=== PATIENT | female | born 1970 | race Caucasian/White ===

== ENCOUNTER 2020-08-28 00:51 | Inpatient (IN) | payer OTHER ==
[2020-08-28] MEDS ORDERED: CALCIUM CHLORIDE 1 GM in SODIUM CHLORIDE 0.9% 50 ML IVPB STA (01:18)
[2020-08-28] MEDS ORDERED: SODIUM CHLORIDE 0.9% 2,000 ML IV STA (01:18)
[2020-08-28] MEDS ORDERED: CALCIUM GLUCONATE 2 GM in SODIUM CHLORIDE 0.9% 100 ML IVPB ONE (01:19)
[2020-08-28] MEDS ORDERED: GLUCAGON 1 MG/ML VIAL IVP STA (01:19)
--- NOTE | 2020-08-28 01:20 | ED ---
Overdose HPI - General Chief Complaint: Overdose Stated Complaint: Mental Health Time Seen by Provider: 08/28/20 01:09 Source: patient, EMS Mode of arrival: EMS Limitations: no limitations - Related Data Allergies Allergy/AdvReac Type Severity Reaction Status Date / Time Penicillins Allergy Anaphylaxis Verified 08/28/20 01:12 Review of Systems ROS Statement: Those systems with pertinent positive or pertinent negative responses have been documented in the HPI. ROS Other: All systems not noted in ROS Statement are negative. Past Medical History Past Medical History: Hypertension Additional Past Medical History / Comment(s): Hepatitis C History of Any Multi-Drug Resistant Organisms: None Reported Past Surgical History: No Surgical Hx Reported Past Psychological History: Anxiety, Bipolar, Depression Smoking Status: Former smoker General Exam Limitations: no limitations Course Vital Signs 08/28/20 08/28/20 08/28/20 01:08 01:20 01:40 Temperature 98.0 F Pulse Rate 72 82 66 Respiratory 18 18 18 Rate Blood Pressure 141/96 97/62 105/65 O2 Sat by Pulse 97 98 97 Oximetry 08/28/20 08/28/20 08/28/20 02:00 02:14 02:28 Temperature Pulse Rate 62 63 Respiratory 18 15 14 Rate Blood Pressure 115/66 107/61 O2 Sat by Pulse 97 Oximetry Medical Decision Making - Lab Data Result diagrams: 08/28/20 01:26 08/28/20 01:26 Lab Results 08/28/20 08/28/20 08/28/20 Range/Units 01:26 01:26 01:26 WBC 6.0 (3.8-10.6) k/uL RBC 4.21 (3.80-5.40) m/uL Hgb 12.9 (11.4-16.0) gm/dL Hct 38.0 (34.0-46.0) % MCV 90.3 (80.0-100.0) fL MCH 30.6 (25.0-35.0) pg MCHC 33.9 (31.0-37.0) g/dL RDW 14.2 (11.5-15.5) % Plt Count 195 (150-450) k/uL MPV 7.7 Neutrophils % 65 % Lymphocytes % 22 % Monocytes % 7 % Eosinophils % 3 % Basophils % 0 % Neutrophils # 3.9 (1.3-7.7) k/uL Lymphocytes # 1.4 (1.0-4.8) k/uL Monocytes # 0.4 (0-1.0) k/uL Eosinophils # 0.2 (0-0.7) k/uL Basophils # 0.0 (0-0.2) k/uL Sodium 140 (137-145) mmol/L Potassium 3.5 (3.5-5.1) mmol/L Chloride 107 (98-107) mmol/L Carbon Dioxide 25 (22-30) mmol/L Anion Gap 8 mmol/L BUN 19 H (7-17) mg/dL Creatinine 0.55 (0.52-1.04) mg/dL Est GFR (CKD-EPI)AfAm >90 (>60 ml/min/1.73 sqM) Est GFR (CKD-EPI)NonAf >90 (>60 ml/min/1.73 sqM) Glucose 114 H (74-99) mg/dL POC Glucose (mg/dL) (75-99) mg/dL POC Glu Police [employer]et ID Calcium 9.0 (8.4-10.2) mg/dL Total Bilirubin 0.2 (0.2-1.3) mg/dL AST 48 H (14-36) U/L ALT 55 H (4-34) U/L Alkaline Phosphatase 62 (38-126) U/L Creatine Kinase 177 H (30-135) U/L CK-MB (CK-2) 1.3 (0.0-2.4) ng/mL Troponin I <0.012 (0.000-0.034) ng/mL Total Protein 6.5 (6.3-8.2) g/dL Albumin 3.7 (3.5-5.0) g/dL Lipase 205 (23-300) U/L Urine HCG, Qual (Not Detectd) Salicylates <1.0 mg/dL Urine Opiates Screen (NotDetected) Ur Oxycodone Screen (NotDetected) Urine Methadone Screen (NotDetected) Ur Propoxyphene Screen (NotDetected) Acetaminophen <10.0 ug/mL Ur Barbiturates Screen (NotDetected) U Tricyclic Antidepress (NotDetected) Ur Phencyclidine Scrn (NotDetected) Ur Amphetamines Screen (NotDetected) U Methamphetamines Scrn (NotDetected) U Benzodiazepines Scrn (NotDetected) Urine Cocaine Screen (NotDetected) U Marijuana (THC) Screen (NotDetected) Serum Alcohol <10 mg/dL 08/28/20 08/28/20 08/28/20 Range/Units 02:01 02:01 04:03 WBC (3.8-10.6) k/uL RBC (3.80-5.40) m/uL Hgb (11.4-16.0) gm/dL Hct (34.0-46.0) % MCV (80.0-100.0) fL MCH (25.0-35.0) pg MCHC (31.0-37.0) g/dL RDW (11.5-15.5) % Plt Count (150-450) k/uL MPV Neutrophils % % Lymphocytes % % Monocytes % % Eosinophils % % Basophils % % Neutrophils # (1.3-7.7) k/uL Lymphocytes # (1.0-4.8) k/uL Monocytes # (0-1.0) k/uL Eosinophils # (0-0.7) k/uL Basophils # (0-0.2) k/uL Sodium (137-145) mmol/L Potassium (3.5-5.1) mmol/L Chloride (98-107) mmol/L Carbon Dioxide (22-30) mmol/L Anion Gap mmol/L BUN (7-17) mg/dL Creatinine (0.52-1.04) mg/dL Est GFR (CKD-EPI)AfAm (>60 ml/min/1.73 sqM) Est GFR (CKD-EPI)NonAf (>60 ml/min/1.73 sqM) Glucose (74-99) mg/dL POC Glucose (mg/dL) 175 H (75-99) mg/dL POC Glu Police Cadet ID Karrie Tina Calcium (8.4-10.2) mg/dL Total Bilirubin (0.2-1.3) mg/dL AST (14-36) U/L ALT (4-34) U/L Alkaline Phosphatase (38-126) U/L Creatine Kinase (30-135) U/L CK-MB (CK-2) (0.0-2.4) ng/mL Troponin I (0.000-0.034) ng/mL Total Protein (6.3-8.2) g/dL Albumin (3.5-5.0) g/dL Lipase (23-300) U/L Urine HCG, Qual Not Detected (Not Detectd) Salicylates mg/dL Urine Opiates Screen Not Detected (NotDetected) Ur Oxycodone Screen Not Detected (NotDetected) Urine Methadone Screen Not Detected (NotDetected) Ur Propoxyphene Screen Not Detected (NotDetected) Acetaminophen ug/mL Ur Barbiturates Screen Not Detected (NotDetected) U Tricyclic Antidepress Not Detected (NotDetected) Ur Phencyclidine Scrn Not Detected (NotDetected) Ur Amphetamines Screen Not Detected (NotDetected) U Methamphetamines Scrn Not Detected (NotDetected) U Benzodiazepines Scrn Not Detected (NotDetected) Urine Cocaine Screen Not Detected (NotDetected) U Marijuana (THC) Screen Not Detected (NotDetected) Serum Alcohol mg/dL - EKG Data -: EKG Interpreted by Me (EKG shows sinus rhythm 77. 154 QRS 92 QTC 42) Disposition Clinical Impression: Drug overdose, Suicide attempt by multiple drug overdose, Overdose of calcium- channel sigrid Disposition: ADMITTED IP TO THIS HOSP Condition: Critical Is patient prescribed a controlled substance at d/c from ED?: No Referrals: None,Stated [Primary Care Provider] - 1-2 days
[2020-08-28 01:39] LABS: Basophils % (A) 0 %; Eosinophils # (A) 0.2 k/uL (0-0.7); Eosinophils % (A) 3 %; HGB 12.9 gm/dL (11.4-16.0); Lymphocytes # (A) 1.4 k/uL (1.0-4.8); Lymphocytes % (A) 22 %; MCH 30.6 pg (25.0-35.0); MCHC 33.9 g/dL (31.0-37.0); MCV 90.3 fL (80.0-100.0); Mean Platelet Volume 7.7; Monocytes # (A) 0.4 k/uL (0-1.0); Monocytes % (A) 7 %; Neutrophils # (A) 3.9 k/uL (1.3-7.7); Neutrophils % (A) 65 %; Platelet Count 195 k/uL (150-450); RBC 4.21 m/uL (3.80-5.40); RDW 14.2 % (11.5-15.5)
[2020-08-28] MEDS ORDERED: CALCIUM CHLORIDE 100 MG/ML 10 ML SYRINGE IVP STA (01:41)
[2020-08-28] MEDS: GLUCAGON IV SCH ×11 (01:48→23:37)
[2020-08-28] MEDS: WATER IV SCH ×11 (01:48→23:37)
[2020-08-28] MEDS: DEXTROSE 5% IV SCH ×11 (01:48→23:37)
[2020-08-28 01:52] LABS: ALT 55 U/L (4-34); AST 48 U/L (14-36); Acetaminophen <10.0 ug/mL; African American GFR (CKD) >90 (>60 ml/min/1.73 sqM); Albumin 3.7 g/dL (3.5-5.0); Alcohol <10 mg/dL; Alkaline Phosphatase 62 U/L (38-126); Anion Gap 8 mmol/L; Blood Urea Nitrogen 19 mg/dL (7-17); Carbon Dioxide 25 mmol/L (22-30); Chloride 107 mmol/L (98-107); Creatine Kinase 177 U/L (30-135); Glucose 114 mg/dL (74-99); Lipase 205 U/L (23-300); Non-African American GFR(CKD) >90 (>60 ml/min/1.73 sqM); Potassium 3.5 mmol/L (3.5-5.1); Salicylate <1.0 mg/dL; Sodium 140 mmol/L (137-145); Total Bilirubin 0.2 mg/dL (0.2-1.3); Total Protein 6.5 g/dL (6.3-8.2)
[2020-08-28 02:03] LABS: Creatine Kinase MB 1.3 ng/mL (0.0-2.4); Troponin I <0.012 ng/mL (0.000-0.034)
[2020-08-28] MEDS ORDERED: NALOXONE 0.4 MG/ML 1 ML VIAL IVP STA (02:09)
[2020-08-28 02:24] LABS: Amphetamine Screen,Urine Not Detected (NotDetected); Barbiturate Screen,Urine Not Detected (NotDetected); Benzodiazepines Screen,Urine Not Detected (NotDetected); Cocaine Screen,Urine Not Detected (NotDetected); Methadone Screen, Urine Not Detected (NotDetected); Opiate Screen,Urine Not Detected (NotDetected); Oxycodone Screen, Urine Not Detected (NotDetected); Phencyclidine Screen,Urine Not Detected (NotDetected); Tricyclic Antidepressant,Urine Not Detected (NotDetected); Urn Cannabinoid Scrn Not Detected (NotDetected)
[2020-08-28] MEDS: NOREPINEPHRINE 4 MG in SODIUM CHLORIDE 0.9% 250 ML IV SCH ×2 (02:27→21:28)
[2020-08-28] MEDS ORDERED: INSULIN REGULAR BOLUS (FROM DRIP BAG) IV ONE (04:02)
[2020-08-28] MEDS ORDERED: INSULIN REGULAR 100 UNIT/ML VIAL IV ONE (04:04)
[2020-08-28 04:06] LABS: Glucose,Whole Blood 175 mg/dL (75-99)
[2020-08-28] MEDS ORDERED: DEXTROSE 5% IN WATER 1,000 ML IV SCH ×2 (04:15→08:45)
[2020-08-28] MEDS: DEXTROSE 50% SYRINGE 50 ML IVP STA ×2 (04:59→19:06)
[2020-08-28 05:09] LABS: Glucose,Whole Blood 293 mg/dL (75-99)
[2020-08-28] MEDS: INSULIN REGULAR 100 UNIT in SODIUM CHLORIDE 0.9% 100 ML IV SCH ×15 (05:13→22:39)
[2020-08-28 05:49] LABS: Glucose,Whole Blood 210 mg/dL (75-99)
[2020-08-28] MEDS ORDERED: ONDANSETRON 4 MG/2 ML VIAL IVP PRN (06:26)
[2020-08-28 07:08] LABS: Glucose,Whole Blood 85 mg/dL (75-99)
[2020-08-28] MEDS ORDERED: DEXTROSE 50% SYRINGE 50 ML IVP STA ×7 (07:12→20:04)
[2020-08-28 07:38] LABS: Glucose,Whole Blood 160 mg/dL (75-99)
[2020-08-28 08:02] LABS: Glucose,Whole Blood 97 mg/dL (75-99)
[2020-08-28] MEDS ORDERED: DEXTROSE 50% SYRINGE 50 ML IVP ONE (08:05)
[2020-08-28 08:10] LABS: African American GFR (CKD) >90 (>60 ml/min/1.73 sqM); Anion Gap 9 mmol/L; Blood Urea Nitrogen 17 mg/dL (7-17); Carbon Dioxide 20 mmol/L (22-30); Chloride 109 mmol/L (98-107); Glucose 144 mg/dL (74-99); Non-African American GFR(CKD) >90 (>60 ml/min/1.73 sqM); Potassium 2.8 mmol/L (3.5-5.1); Sodium 138 mmol/L (137-145)
[2020-08-28 08:20] LABS: Phosphorus 0.9 mg/dL (2.5-4.5)
[2020-08-28 08:33] LABS: Glucose,Whole Blood 147 mg/dL (75-99)
[2020-08-28] MEDS ORDERED: DEXTROSE 10% IN WATER 500 ML in EMPTY BAG 1 BAG IV SCH (08:45)
[2020-08-28 09:02] LABS: Glucose,Whole Blood 98 mg/dL (75-99)
[2020-08-28] MEDS: SODIUM PHOSPHATE 10 MMOL in SODIUM CHLORIDE 0.9% 250 ML IVPB SCH ×3 (09:31→13:58)
[2020-08-28 09:32] LABS: Glucose,Whole Blood 173 mg/dL (75-99)
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
[2020-08-28] MEDS ORDERED: WATER IV SCH (10:00)
[2020-08-28] MEDS ORDERED: GLUCAGON IV SCH (10:00)
[2020-08-28] MEDS ORDERED: DEXTROSE 5% IV SCH (10:00)
[2020-08-28 10:06] LABS: Glucose,Whole Blood 114 mg/dL (75-99)
[2020-08-28 10:34] LABS: Glucose,Whole Blood 103 mg/dL (75-99)
[2020-08-28] MEDS: DEXTROSE 10% IN WATER 500 ML in EMPTY BAG 1 BAG IV SCH ×3 (10:39→20:04)
--- NOTE | 2020-08-28 10:51 | P.HPIM ---
History of Present Illness This is a pleasant 50 years old female with past medical history of hypertension, hepatitis C, depression and bipolar disorder Patient presents to ED with complaint also subtle attempts by taking some of her antihypertensive medication, as per presenting note from ED, patient states that medication starts with the latter D and is 120 mg, suspicious for Diltiazem. Patient states that she was trying to kill herself. She feels a little bit tired and drowsy however she denies chest pain or dyspnea. No abdominal or urinary complaints. No headache or weakness or numbness. She is alert awake and oriented to time place and person. Currently vitals are stable and patient is afebrile. CBC and BMP are unremarkable. Sugar control. Liver enzymes slightly elevated with AST 48 and ALT 55. Total bilirubin is normal 0.2. Lipase is 205. Urine test is not detected. Urine toxicology and serum salicylate and acetaminophen are negative. Serum alcohol level is negative. EKG showing normal sinus rhythm at [address] with no significant ST-T changes. In the emergency room patient received calcium chloride, normal saline, calcium gluconate, glucagon, and started on D5 W, insulin and D50. And started on insulin drip Review of Systems CONSTITUTIONAL: No fever, no malaise, no fatigue. HEENT: No recent visual problems or hearing problems. Denied any sore throat. CARDIOVASCULAR: No orthopnea, PND, no palpitations, no syncope. PULMONARY: No shortness of breath, no cough, no hemoptysis. GASTROINTESTINAL: No diarrhea, no nausea, no vomiting, no abdominal pain. Normoactive bowel sounds. NEUROLOGICAL: No headaches, no weakness, no numbness. HEMATOLOGICAL: Denies any bleeding or petechiae. GENITOURINARY: Denies any burning micturition, frequency, or urgency. MUSCULOSKELETAL/RHEUMATOLOGICAL: Denies any joint pain, swelling, or any muscle pain. ENDOCRINE: Denies any polyuria or polydipsia. Past Medical History Past Medical History: Hypertension Additional Past Medical History / Comment(s): Hepatitis C History of Any Multi-Drug Resistant Organisms: None Reported Past Surgical History: No Surgical Hx Reported Past Psychological History: Anxiety, Bipolar, Depression Smoking Status: Former smoker - Past Family History Mother Family Medical History: Cancer Additional Family Medical History / Comment(s): non-hodgkins lymphoma Father Family Medical History: Cancer, Diabetes Mellitus Medications and Allergies Home Medications Medication Instructions Recorded Confirmed Type Diltiazem HCl [Cartia Xt] 120 mg PO DAILY 08/28/20 08/28/20 History Metoprolol Succinate [Toprol XL] 25 mg PO DAILY 08/28/20 08/28/20 History amLODIPine [Norvasc] 2.5 mg PO DAILY 08/28/20 08/28/20 History atenoloL [Atenolol] 25 mg PO DAILY 08/28/20 08/28/20 History Allergies Allergy/AdvReac Type Severity Reaction Status Date / Time Penicillins Allergy Anaphylaxis Verified 08/28/20 07:14 Physical Exam Vitals: Vital Signs Temp Pulse Resp BP Pulse Ox 08/28/20 05:00 65 15 109/69 95 08/28/20 04:00 62 16 108/64 96 08/28/20 02:28 63 14 107/61 97 08/28/20 02:14 15 08/28/20 02:00 62 18 115/66 08/28/20 01:40 66 18 105/65 97 08/28/20 01:20 82 18 97/62 98 08/28/20 01:08 98.0 F 72 18 141/96 97 Intake and Output 08/27/20 08/27/20 08/28/20 14:59 22:59 06:59 Other: Weight 71.668 kg GENERAL: The patient is alert and oriented x3, not in any acute distress. Well developed, well nourished. HEENT: Pupils are round and equally reacting to light. EOMI. No scleral icterus. No conjunctival pallor. Normocephalic, atraumatic. No pharyngeal erythema. No thyromegaly. CARDIOVASCULAR: S1 and S2 present. No murmurs, rubs, or gallops. PULMONARY: Chest is clear to auscultation, no wheezing or crackles. ABDOMEN: Soft, nontender, nondistended, normoactive bowel sounds. No palpable organomegaly. MUSCULOSKELETAL: No joint swelling or deformity. EXTREMITIES: No cyanosis, clubbing, or pedal edema. NEUROLOGICAL: Gross neurological examination did not reveal any focal deficits. SKIN: No rashes. No petechiae Results CBC & Chem 7: 08/28/20 01:26 08/28/20 07:41 Labs: Abnormal Lab Results - Last 24 Hours (Table) 08/28/20 08/28/2008/28/21 Range/Units 01:26 04:03 05:08 BUN 19 H (7-17) mg/dL Glucose 114 H (74-99) mg/dL POC Glucose (mg/dL) 175 H 293 H (75-99) mg/dL AST 48 H (14-36) U/L ALT 55 H (4-34) U/L Creatine Kinase 177 H (30-135) U/L 08/28/20 Range/Units 05:47 BUN (7-17) mg/dL Glucose (74-99) mg/dL POC Glucose (mg/dL) 210 H (75-99) mg/dL AST (14-36) U/L ALT (4-34) U/L Creatine Kinase (30-135) U/L Assessment and Plan Assessment: Suicidal attempts related to her history of depression Drug overdose, mostly with calcium channel blockers Hypertension, currently hypotensive needing small dose of pressors bradycardia secondary to above Hepatitis C Depression and bipolar disorder Plan: This is a pleasant 50 years old female who was admitted with shortness of the M Rogelio overdose. Continue with IV fluids. Continue with insulin/glucose drip per poison control recommendation. Pulmonary/critical care consult Psychiatric consult Labs and medication were reviewed.. Continue same treatment. Continue with symptomatic treatment. Resume home medication. Monitor lytes and vitals. DVT and GI prophylaxis. Further recommendations depends on the clinical course of the patient DVT prophylaxis: Subcutaneous heparin GI Prophylaxis: Pepcid PT/OT: Pending Prognosis is guarded
[2020-08-28 11:01] LABS: Glucose,Whole Blood 109 mg/dL (75-99)
[2020-08-28 11:34] LABS: Glucose,Whole Blood 129 mg/dL (75-99)
[2020-08-28 12:01] LABS: Glucose,Whole Blood 121 mg/dL (75-99)
[2020-08-28 12:13] LABS: African American GFR (CKD) >90 (>60 ml/min/1.73 sqM); Blood Urea Nitrogen 15 mg/dL (7-17); Carbon Dioxide 21 mmol/L (22-30); Glucose 130 mg/dL (74-99); Non-African American GFR(CKD) >90 (>60 ml/min/1.73 sqM); Phosphorus 1.6 mg/dL (2.5-4.5); Sodium 136 mmol/L (137-145)
[2020-08-28 12:33] LABS: Potassium 2.7 mmol/L (3.5-5.1)
[2020-08-28 12:34] LABS: Anion Gap 7 mmol/L; Chloride 108 mmol/L (98-107)
[2020-08-28 12:38] LABS: Glucose,Whole Blood 210 mg/dL (75-99)
[2020-08-28 13:02] LABS: Glucose,Whole Blood 200 mg/dL (75-99)
[2020-08-28 13:46] LABS: Glucose,Whole Blood 199 mg/dL (75-99)
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
[2020-08-28 14:38] LABS: Glucose,Whole Blood 101 mg/dL (75-99)
[2020-08-28 15:07] LABS: Glucose,Whole Blood 67 mg/dL (75-99)
[2020-08-28 15:28] LABS: Glucose,Whole Blood 115 mg/dL (75-99)
[2020-08-28 16:04] LABS: Glucose,Whole Blood 82 mg/dL (75-99)
[2020-08-28 16:31] LABS: Glucose,Whole Blood 150 mg/dL (75-99)
[2020-08-28 17:02] LABS: Glucose,Whole Blood 93 mg/dL (75-99)
[2020-08-28 17:31] LABS: Glucose,Whole Blood 56 mg/dL (75-99)
[2020-08-28 17:32] LABS: Glucose,Whole Blood 60 mg/dL (75-99)
[2020-08-28 18:02] LABS: Glucose,Whole Blood 158 mg/dL (75-99)
[2020-08-28 18:24] LABS: Magnesium 1.5 mg/dL (1.6-2.3); Potassium 2.9 mmol/L (3.5-5.1)
[2020-08-28 18:32] LABS: Glucose,Whole Blood 97 mg/dL (75-99)
[2020-08-28 19:01] LABS: Glucose,Whole Blood 81 mg/dL (75-99)
[2020-08-28 19:35] LABS: Glucose,Whole Blood 105 mg/dL (75-99)
[2020-08-28 20:04] LABS: Glucose,Whole Blood 60 mg/dL (75-99)
[2020-08-28 20:31] LABS: Glucose,Whole Blood 128 mg/dL (75-99)
[2020-08-28 21:01] LABS: Glucose,Whole Blood 58 mg/dL (75-99)
[2020-08-28] MEDS: DEXTROSE 50% SYRINGE 50 ML IVP PRN ×3 (21:04→23:07)
[2020-08-28 21:32] LABS: Glucose,Whole Blood 104 mg/dL (75-99)
[2020-08-28] MEDS: HEPARIN SODIUM,PORCINE/PF 5,000 UNIT/0.5 ML SYRINGE SQ SCH (21:37)
[2020-08-28] MEDS: FAMOTIDINE 20 MG/2 ML VIAL IV SCH (21:37)
[2020-08-28 22:00] LABS: Glucose,Whole Blood 59 mg/dL (75-99)
[2020-08-28] MEDS ORDERED: Magnesium Replacement Protocol 1 EACH MISC MISCELLANE PRN ×2 (22:20→22:27)
[2020-08-28] MEDS ORDERED: Potassium Replacement Protocol 1 EACH MISC MISCELLANE PRN (22:27)
[2020-08-28 22:31] LABS: Glucose,Whole Blood 114 mg/dL (75-99)
[2020-08-28] MEDS: MAGNESIUM SULFATE-D5W PMX 1 GM in DEXTROSE/WATER 1 100ML.BAG IVPB SCH ×2 (22:39→23:50)
[2020-08-28 23:01] LABS: Glucose,Whole Blood 68 mg/dL (75-99)
[2020-08-28 23:31] LABS: Glucose,Whole Blood 113 mg/dL (75-99)
[2020-08-29 00:03] LABS: Glucose,Whole Blood 71 mg/dL (75-99)
[2020-08-29] MEDS: DEXTROSE 50% SYRINGE 50 ML IVP PRN ×4 (00:07→03:02)
[2020-08-29 00:31] LABS: Glucose,Whole Blood 135 mg/dL (75-99)
[2020-08-29] MEDS: INSULIN REGULAR 100 UNIT in SODIUM CHLORIDE 0.9% 100 ML IV SCH ×7 (00:53→15:22)
[2020-08-29 01:02] LABS: Glucose,Whole Blood 64 mg/dL (75-99)
[2020-08-29] MEDS: DEXTROSE 10% IN WATER 500 ML in EMPTY BAG 1 BAG IV SCH ×3 (01:11→09:21)
[2020-08-29 01:34] LABS: Glucose,Whole Blood 114 mg/dL (75-99)
[2020-08-29 02:01] LABS: Glucose,Whole Blood 72 mg/dL (75-99)
[2020-08-29] MEDS: GLUCAGON IV SCH ×3 (02:10→06:25)
[2020-08-29] MEDS: DEXTROSE 5% IV SCH ×3 (02:10→06:25)
[2020-08-29] MEDS: WATER IV SCH ×3 (02:10→06:25)
[2020-08-29 02:33] LABS: Glucose,Whole Blood 116 mg/dL (75-99)
[2020-08-29 03:03] LABS: Glucose,Whole Blood 62 mg/dL (75-99)
[2020-08-29 03:33] LABS: Glucose,Whole Blood 145 mg/dL (75-99)
[2020-08-29 04:01] LABS: Glucose,Whole Blood 131 mg/dL (75-99)
[2020-08-29 04:35] LABS: Glucose,Whole Blood 86 mg/dL (75-99)
[2020-08-29 04:46] LABS: Basophils % (A) 0 %; Eosinophils # (A) 0.2 k/uL (0-0.7); Eosinophils % (A) 2 %; HCT 35.9 % (34.0-46.0); HGB 12.1 gm/dL (11.4-16.0); Lymphocytes # (A) 1.6 k/uL (1.0-4.8); Lymphocytes % (A) 18 %; MCH 30.5 pg (25.0-35.0); MCHC 33.6 g/dL (31.0-37.0); MCV 90.8 fL (80.0-100.0); Mean Platelet Volume 7.6; Monocytes # (A) 0.8 k/uL (0-1.0); Monocytes % (A) 9 %; Neutrophils # (A) 6.3 k/uL (1.3-7.7); Neutrophils % (A) 70 %; Platelet Count 184 k/uL (150-450); RBC 3.96 m/uL (3.80-5.40); RDW 14.2 % (11.5-15.5); WBC 9.1 k/uL (3.8-10.6)
[2020-08-29 04:56] LABS: ALT 48 U/L (4-34); AST 44 U/L (14-36); African American GFR (CKD) >90 (>60 ml/min/1.73 sqM); Albumin 2.9 g/dL (3.5-5.0); Alkaline Phosphatase 48 U/L (38-126); Anion Gap 6 mmol/L; Blood Urea Nitrogen 11 mg/dL (7-17); Calcium 8.3 mg/dL (8.4-10.2); Carbon Dioxide 24 mmol/L (22-30); Chloride 110 mmol/L (98-107); Glucose 103 mg/dL (74-99); Non-African American GFR(CKD) >90 (>60 ml/min/1.73 sqM); Potassium 3.6 mmol/L (3.5-5.1); Sodium 140 mmol/L (137-145); Total Bilirubin 0.4 mg/dL (0.2-1.3); Total Protein 5.4 g/dL (6.3-8.2)
[2020-08-29 05:02] LABS: Glucose,Whole Blood 98 mg/dL (75-99)
[2020-08-29 05:32] LABS: Glucose,Whole Blood 106 mg/dL (75-99)
[2020-08-29 06:03] LABS: Glucose,Whole Blood 122 mg/dL (75-99)
[2020-08-29 06:31] LABS: Glucose,Whole Blood 106 mg/dL (75-99)
[2020-08-29 07:04] LABS: Glucose,Whole Blood 141 mg/dL (75-99)
[2020-08-29 07:37] LABS: Glucose,Whole Blood 136 mg/dL (75-99)
[2020-08-29 08:02] LABS: Glucose,Whole Blood 207 mg/dL (75-99)
[2020-08-29 08:29] LABS: Glucose,Whole Blood 243 mg/dL (75-99)
[2020-08-29 09:06] LABS: Glucose,Whole Blood 241 mg/dL (75-99)
[2020-08-29] MEDS: FAMOTIDINE 20 MG/2 ML VIAL IV SCH (09:21)
[2020-08-29] MEDS: HEPARIN SODIUM,PORCINE/PF 5,000 UNIT/0.5 ML SYRINGE SQ SCH ×2 (09:21→22:40)
[2020-08-29 09:45] LABS: Glucose,Whole Blood 234 mg/dL (75-99)
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
[2020-08-29 11:08] LABS: Glucose,Whole Blood 142 mg/dL (75-99)
[2020-08-29 12:54] LABS: Glucose,Whole Blood 116 mg/dL (75-99)
[2020-08-29 13:40] VITALS: RESP 16
[2020-08-29 13:51] LABS: Glucose,Whole Blood 122 mg/dL (75-99)
--- NOTE | 2020-08-29 18:47 | P.DS ---
Providers Date of admission: 08/28/20 04:08 Attending physician: John Gastelum Consults: 08/28/20 04:08 Consult Physician Routine Consulting Provider: Lars Munoz Consult Reason/Comments: ICU Do you want consulting provider notified?: Yes Consult Physician Routine Consulting Provider: Nolan Ovalles Consult Reason/Comments: OD,SI Do you want consulting provider notified?: Yes Primary care physician: Stated None Hospital Course: Diagnoses: Suicidal attempts related to her history of depression Drug overdose, mostly with calcium channel blockers Hypertension, currently hypotensive needing small dose of pressors bradycardia secondary to above Hepatitis C Depression and bipolar disorder Hospital course: This is a pleasant 50 years old female with past medical history of hypertension, hepatitis C, depression and bipolar disorder Patient presents to ED with complaint also subtle attempts by taking some of her antihypertensive medication, as per presenting note from ED, patient states that medication starts with the latter D and is 120 mg, suspicious for Diltiazem. Patient states that she was trying to kill herself. She feels a little bit tired and drowsy however she denies chest pain or dyspnea. No abdominal or urinary complaints. No headache or weakness or numbness. Patient was hypotensive and bradycardic on admission and did small dose of levophed. Patient admitted to the ICU with pulmonary/critical care team consult she was treated with insulin drip, D5W and glucagon. Patient is monitored closely, her blood pressure improved, heart rate improved, all drips were stopped She is fully awake and oriented. She denies any specific complaint. Sitter at bedside. Patient evaluated by psychiatrist recommended to transfer patient to inpatient psych unit Patient was cleared for transfer by pulmonary/critical care team Problems and management plan were discussed with the patient and he verbalized understanding and acceptance Patient was found stable and can be discharged home however he needs follow-up as an outpatient. Patient was instructed to follow up with PCP within one week and patient agrees Gen: patient is a AAOx3, no distress CVS: S1-S2, RRR, no murmur Lungs: B/L CTA, no wheezing Abdomen: soft, no distention, no tenderness, positive bowel sounds Extremity: no leg edema or induration Time spent more than 35 minutes Patient Condition at Discharge: Critical Plan - Discharge Summary Discharge Rx Participant: No New Discharge Prescriptions: No Action amLODIPine [Norvasc] 2.5 mg PO DAILY Metoprolol Succinate [Toprol XL] 25 mg PO DAILY atenoloL [Atenolol] 25 mg PO DAILY Diltiazem HCl [Cartia Xt] 120 mg PO DAILY Discharge Medication List Diltiazem HCl [Cartia Xt] 120 mg PO DAILY 08/28/20 [History] Metoprolol Succinate [Toprol XL] 25 mg PO DAILY 08/28/20 [History] amLODIPine [Norvasc] 2.5 mg PO DAILY 08/28/20 [History] atenoloL [Atenolol] 25 mg PO DAILY 08/28/20 [History] Follow up Appointment(s)/Referral(s): None,Stated [Primary Care Provider] - 1-2 days
[2020-08-29 21:25] LABS: Glucose,Whole Blood 105 mg/dL (75-99)
[2020-08-29 22:16] VITALS: BP 126/72; PULSE 65; TEMP 98
== END 2020-08-29 22:55 | DRG 918 ==
LOC: EC 00:51 → 2SICU 04:08
PROVIDERS: ADMIT Hospitalist; ATTEND Hospitalist
PROC: 3E033XZ Introduction of Vasopressor into Peripheral Vein, Percutaneous Approach (ICD-10-PCS; principal; 2020-08-28)
DX: T46.1X2A Poisoning by calcium-channel blockers, intentional self-harm, initial encounter (principal); F31.9 Bipolar disorder, unspecified; I10 Essential (primary) hypertension; Z87.891 Personal history of nicotine dependence; Z20.828 Contact with and (suspected) exposure to other viral communicable diseases; B18.2 Chronic viral hepatitis C; Z83.3 Family history of diabetes mellitus; Z80.7 Family history of other malignant neoplasms of lymphoid, hematopoietic and related tissues; I95.9 Hypotension, unspecified; R00.1 Bradycardia, unspecified; Z91.5 Personal history of self-harm; F41.9 Anxiety disorder, unspecified; F42.9 Obsessive-compulsive disorder, unspecified; Z79.899 Other long term (current) drug therapy; Z20.822 Contact with and (suspected) exposure to COVID-19
CPT/HCPCS: 36415; 80051; 80053; 80143; 80179; 80306; 80320; 81025; 82075; 82550; 82553; 82565; 82947; 83690; 83735; 84100; 84484; 84520; 85025; 87635; 93005; 96361; 96365; 96375; 99285

== ENCOUNTER 2020-08-29 22:48 | Inpatient (IN) | payer OTHER ==
[2020-08-29] MEDS ORDERED: LORazepam 1 MG TAB PO PRN (23:40)
[2020-08-29] MEDS ORDERED: MAGNESIUM HYDROXIDE 2,400 MG/10 ML CUP PO PRN (23:40)
[2020-08-29] MEDS ORDERED: MAG HYDROX/AL HYDROX/SIMETH 30 ML CUP PO PRN (23:40)
[2020-08-29] MEDS ORDERED: ACETAMINOPHEN TAB 325 MG TAB PO PRN (23:40)
[2020-08-29] MEDS ORDERED: LORazepam 2 MG/ML INJ IM PRN (23:43)
[2020-08-29] MEDS ORDERED: haloperidoL 5 MG TAB PO PRN (23:45)
[2020-08-29] MEDS ORDERED: HALOPERIDOL LACTATE 5 MG/ML 1 ML VIAL IM PRN (23:45)
[2020-08-30] MEDS ORDERED: METOPROLOL SUCCINATE (ER) 25 MG TAB.ER.24H PO SCH (09:00)
[2020-08-30] MEDS ORDERED: amLODIPine 2.5 MG TAB PO SCH (09:00)
[2020-08-30] MEDS ORDERED: DILTIAZEM CD 120 MG CAP.ER.24H PO SCH (09:00)
[2020-08-30] MEDS ORDERED: atenoloL 25 MG TAB PO SCH (09:00)
[2020-08-30] MEDS: FLUoxetine HCL 20 MG CAP PO SCH (09:36)
[2020-08-30 09:41] LABS: Basophils % (A) 1 %; Eosinophils # (A) 0.2 k/uL (0-0.7); Eosinophils % (A) 3 %; HCT 41.6 % (34.0-46.0); HGB 13.9 gm/dL (11.4-16.0); Lymphocytes # (A) 1.4 k/uL (1.0-4.8); Lymphocytes % (A) 24 %; MCH 30.6 pg (25.0-35.0); MCHC 33.4 g/dL (31.0-37.0); MCV 91.5 fL (80.0-100.0); Mean Platelet Volume 7.7; Monocytes # (A) 0.4 k/uL (0-1.0); Monocytes % (A) 7 %; Neutrophils # (A) 3.8 k/uL (1.3-7.7); Neutrophils % (A) 65 %; Platelet Count 219 k/uL (150-450); RBC 4.55 m/uL (3.80-5.40); RDW 14.5 % (11.5-15.5); WBC 5.9 k/uL (3.8-10.6)
[2020-08-30 09:54] LABS: AST 43 U/L (14-36); African American GFR (CKD) >90 (>60 ml/min/1.73 sqM); Albumin 3.8 g/dL (3.5-5.0); Alkaline Phosphatase 63 U/L (38-126); Anion Gap 10 mmol/L; Blood Urea Nitrogen 10 mg/dL (7-17); Calcium 9.2 mg/dL (8.4-10.2); Carbon Dioxide 23 mmol/L (22-30); Chloride 107 mmol/L (98-107); Glucose 206 mg/dL (74-99); Non-African American GFR(CKD) >90 (>60 ml/min/1.73 sqM); Sodium 140 mmol/L (137-145); Total Bilirubin 0.3 mg/dL (0.2-1.3); Total Protein 6.7 g/dL (6.3-8.2)
[2020-08-30 10:01] LABS: ALT 49 U/L (4-34)
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
[2020-08-30 14:12] LABS: Hemoglobin A1C 5.9 % (4.0-6.0)
[2020-08-30 17:24] LABS: Chol/HDL Ratio 3.74; Cholesterol 161 mg/dL (0-200); LDL Cholesterol,Calculated 89.2 mg/dL (0.0-131.0)
[2020-08-30] MEDS ORDERED: IBUPROFEN 200 MG TAB PO PRN (23:29)
--- NOTE | 2020-08-30 23:29 | P.CONS ---
History of Present Illness - Reason for Consult Consult date: 08/30/20 - History of Present Illness The patient is a 50-year-old female with a PMH of hypertension, hepatitis C, anxiety, and bipolar disorder with presented to the emergency room after a suicide attempt with drug ingestion. The patient was suspected to have taken diazepam. She was initially hypotensive and bradycardic and was admitted to the medical ICU requiring IV pressors. The patient's condition subsequently improved and she was transferred the mental health unit where she was seen and evaluated. She reported feeling well though did report some pain at the IV site on the right arm. She denied fevers, chest pain, shortness of breath, cough. Also denied abdominal pain, nausea, vomiting, diarrhea, headaches, dizziness. Review of systems: Pertinent positives and negatives as discussed in HPI, a complete review of systems was performed and all other systems are negative. Physical examination: General: non toxic, no distress, appears at stated age, normal weight Derm: no unusual rashes/lesions no unusual ecchymoses, warm, dry Head: atraumatic, normocephalic, symmetric Eyes: EOMI, no lid lag, anicteric sclera, pupils equal round reactive to light ENT: Nose and ears atraumatic, no thrush, no pharyngeal erythema Neck: No thyromegaly, no cervical lymphadenopathy, trachea midline, supple Mouth: no lip lesion, mucus membranes moist Cardiovascular: S1S2 reg, no murmur, positive posterior tibial pulse bilateral, no edema, capillary refill less than 2 seconds Lungs: CTA bilateral, no rhonchi, no rales , no accessory muscle use Abdominal: soft, nontender to palpation, no guarding, no appreciable organom egaly, normal bowel sounds Ext: no gross muscle atrophy, muscle strength 5 out of 5 in all 4 extremities grossly, no contractures, Right antecubital fossa and forearm mild erythema, tenderness, and palpable cordlike structure noted Neuro: CN II-XI grossly intact, light touch intact all 4 extremities, finger to nose within normal limits, Psych: Alert, oriented, appropriate affect Assessment/plan Right upper extremity superficial thrombophlebitis -Obtain ultrasound to rule out DVT -Warm and cold compresses - Motrin ordered Hypertension -Patient continues to be normotensive -Hold off on home antihypertensives at this time Chronic hep C -Patient advised to follow-up with GI as an outpatient Depression with suicidal attempts -As per psychiatry Thank you for allowing us to participate in the care of this patient. We will follow peripherally. Do not hesitate to contact us with questions. Someone can be reached from the [facility] hospitalist group at all hours of the day a t [phone]. Past Medical History Past Medical History: Hypertension Additional Past Medical History / Comment(s): Hepatitis C History of Any Multi-Drug Resistant Organisms: None Reported Past Surgical History: No Surgical Hx Reported Additional Past Surgical History / Comment(s): lumpectomy left breast Past Anesthesia/Blood Transfusion Reactions: No Reported Reaction Smoking Status: Former smoker - Past Family History Mother Family Medical History: Cancer Additional Family Medical History / Comment(s): non-hodgkins lymphoma Father Family Medical History: Cancer, Diabetes Mellitus Medications and Allergies Home Medications Medication Instructions Recorded Confirmed Type Diltiazem HCl [Cartia Xt] 120 mg PO DAILY 08/28/20 08/29/20 History Metoprolol Succinate [Toprol XL] 25 mg PO DAILY 08/28/20 08/29/20 History amLODIPine [Norvasc] 2.5 mg PO DAILY 08/28/20 08/29/20 History atenoloL [Atenolol] 25 mg PO DAILY 08/28/20 08/29/20 History Allergies Allergy/AdvReac Type Severity Reaction Status Date / Time Penicillins Allergy Anaphylaxis Verified 08/28/20 07:14 Physical Exam Vitals: Vital Signs Temp Pulse Pulse Resp BP BP Pulse Ox 08/30/20 09:30 97.4 F L 73 20 119/76 08/29/20 22:50 98.0 F 64 18 136/67 97 Results CBC & Chem 7: 08/30/20 09:21 08/30/20 09:21 Labs: Abnormal Lab Results - Last 24 Hours (Table) 08/30/20 Range/Units 09:21 Glucose 206 H (74-99) mg/dL AST 43 H (14-36) U/L ALT 49 H (4-34) U/L
[2020-08-31 07:00] VITALS: RESP 16
[2020-08-31] MEDS: FLUoxetine HCL 20 MG CAP PO SCH (08:01)
--- NOTE | 2020-08-31 11:44 | US ---
EXAMINATION TYPE: US venous doppler duplex UE RT DATE OF EXAM: 08/31/2020 COMPARISON: NONE CLINICAL HISTORY: r/o DVT. Right anterior forearm swelling, pain and redness at IV site x 3 days; IV has been removed. SIDE PERFORMED: Right arm Right Arm: Negative for DVT; is positive for Superficial Vein Thrombosis (SVT) in Basilic Vein at IV site (distal to brachial fossa) and seen for 18 cm length superiorly. Right Subclavian Vein Valve is noted on image #[id number]. Grayscale, color doppler, spectral doppler imaging performed of the deep veins of the right upper ext remity. There is normal flow, compressibility and vascular waveforms. IMPRESSION: Positive superficial thrombophlebitis right basilic vein towards end of study. No acute D VT in the right upper extremity.
--- NOTE | 2020-08-31 17:11 | PN ---
PROGRESS NOTE DATE OF SERVICE: 08/31/2020 CHIEF COMPLAINT: The patient overdosed on her blood pressure medications. She has had significant mood swings with agitation. INTERVAL HISTORY: Patient has been doing fair. She had a quiet day yesterday. She comes out in the day area. She wanders about. It is noted that she does socialize with a few other female patients. It seems to be a positive situation for her. She attended groups yesterday. She did have visitation with her boyfriend that seemed to be positive for her. She slept fairly well last night. Today she has been up. She continues to be out and about with other. She attends groups and says that they have been helpful for her. She has been talking to her daughter who is a support for her. Her daughter lives in [place]. The patient acknowledges that she struggles some with anger towards her boyfriend, which may in fact be some apprehension and anxiety about the fact that this is a brand new relationship and that she has struggled in previous relationships. She acknowledges that she may well have a lot of uncertainties about trusting the boyfriend in the relationship. They have only known each other for one month. She had 3 days off from work when she was working [place] [facility]. She would come over and spend those days with him. As of 1 week ago she moved in with him in this area and has been working for 1 week. She has contacted work and anticipates returning to work when she is out of the hospital. She does acknowledge that she needs some longer-term psychotherapy to address any number of issues. She feels her mood is better, not necessarily because of starting Prozac, but because she feels a little more settled and supported right now. She anticipates to go up to 40 mg a Prozac, which she says has helped her in the past and something she has taken at that dose for a long period of time. She is looking forward to working with the social scientist to get some recommendations for followup therapy. She notes that her boyfriend did indicate that he would be open to couples therapy as well. She tolerates her Prozac. MENTAL STATUS: Patient sat without restlessness. She had good eye contact. She answered questions appropriately. Her thoughts were clear. She had a somewhat reserved affect, though had a friendly manner and smiled a little during the interview. Her mood was dysphoric, though not clearly down or depressed. She did not appear to be significantly distressed, though she did have a somewhat worried manner. There was no indication of thought disorder. There were no thoughts of harm. Cognition was clear. ASSESSMENT: I will continue the current diagnosis and treatment plan. I will continue Prozac 20 mg a day. I had discussed with the patient the need for her to not only get psychotherapy followup though also get settled with a primary care physician here. She hopefully can get some guidance from Social Work tomorrow. She says she does have a primary care physician in the [place] area where she was living, though is planning on having services in this area. She said that she anticipates in 1 week that it would be reasonable for her to go back up on Prozac to 40 mg. We discussed discharge planning and I would anticipate her being discharged by Tuesday. We will focus on stabilization and discharge planning. CARMELLA / MAGGIEN: [id number] /
[2020-08-31 17:38] LABS: Appearance,Urine Cloudy (Clear); Bilirubin,Urine Negative (Negative); Blood,Urine Negative (Negative); Color,Urine Yellow; Glucose,Urine (UA) Negative (Negative); Ketones,Urine Negative (Negative); Leukocyte Esterase,Urine Moderate (Negative); Mucus,Urine Few /hpf; Nitrite,Urine Negative (Negative); PH, Urine 6.5 (5.0-8.0); Protein,Urine Negative (Negative); RBC,Urine 1 /hpf (0-5); Squamous Epithelial Cell,Urine 10 /hpf (0-4); Urobilinogen,Urine <2.0 mg/dL (<2.0); WBC,Urine 13 /hpf (0-5)
[2020-09-01 07:07] VITALS: BP 134/78; PULSE 77
[2020-09-01] MEDS: FLUoxetine HCL 20 MG CAP PO SCH (08:29)
--- NOTE | 2020-09-01 09:55 | P.PN ---
Progress Note - Text Progress Note Date: 09/01/20 Interval History: Patient was seen wandering the hallways and was directable and agreeable to sp eak with policy writer in the office. Patient appeared to be fairly cooperative with policy writer. She explained some of the circumstances as to why she came in the hospital. She states that she overdosed on her blood pressure medications approximately 15-20 tablets. She states that she was in the ICU for about 2 days. She claims that she was feeling overwhelmed and impulsive before coming in the hospital as she had recently moved to [place] a week ago. She states that she got into an argument with her boyfriend and overdosed at that time. She states that she has been trying to go to groups and attempted to cooperate with other patients on the unit. She states that she does not get along with one particular patient that she feels that she is always competing with her. She claims that her mood has been gradually improving and is denying any anxiety today. She states that she is able to sleep fairly last night and denied any problems. She claims she has a fair appetite.. At this time patient denies any suicidal or homical ideations, intent or plan. Patient denies any auditory, visual hallucinations and denies any paranoia or delusions. Patient denies any side effects from the medications and has been compliant with meds. Mental Status Exam: General Appearance: Patient appears to be stated age is alert, directable, and cooperative. Behavior: Patient is calmly seated without any agitated behavior. Times to be cooperative Speech: Patient's speech is fluent and nonpressured. Mood/Affect: Mood is improving mildly, affect is congruent and constricted. Suicidality/Homicidality: Patient denies having any suicidal or homicidal ideation intent or plan. Perceptions: Patient denies any visual hallucinations and denies any auditory hallucinations Though content/process: There is no evidence of any delusional thought content and thought process is linear and goal-directed. Focused on her stressors. Memory and concentration: AOX3, grossly intact for the purposes of this session Judgment and insight: Improving mildly Assessment Major depressive disorder, recurrent, severe Possible borderline personality disorder PTSD Alcohol use disorder Plan: -Patient continues to meet criteria for inpatient psychiatric admission for symptom stabilization and safety. Patient has signed adult voluntary form and medication consent and was placed in patient's chart. -Medications: Continue Prozac 20 mg daily for mood/anxiety. -When necessary Ativan and Haldol for agitation/aggression. -NRT -not needed as patient does not smoke -SW on board for discharge planning. Encouraged the patient to participate in milieu. If patient does well overnight and likely discharge tomorrow.
[2020-09-01 16:37] VITALS: TEMP 98.5
[2020-09-02] MEDS: FLUoxetine HCL 20 MG CAP PO SCH (08:33)
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
== END 2020-09-02 10:51 | disposition home or self-care (01) | DRG 885 ==
LOC: 3MHU 22:48
PROVIDERS: ADMIT Psychiatry & Neurology Psychiatry; ATTEND Psychiatry & Neurology Psychiatry
DX: F31.9 Bipolar disorder, unspecified (principal); B18.2 Chronic viral hepatitis C; F10.10 Alcohol abuse, uncomplicated; F43.10 Post-traumatic stress disorder, unspecified; F60.3 Borderline personality disorder; I10 Essential (primary) hypertension; I80.8 Phlebitis and thrombophlebitis of other sites; T46.1X2A Poisoning by calcium-channel blockers, intentional self-harm, initial encounter; Z79.899 Other long term (current) drug therapy; Z80.7 Family history of other malignant neoplasms of lymphoid, hematopoietic and related tissues; Z83.3 Family history of diabetes mellitus; Z87.891 Personal history of nicotine dependence; Z91.83 Wandering in diseases classified elsewhere
CPT/HCPCS: 80053; 80061; 81001; 83036; 84443; 85025